=== PATIENT | female | born 1990 | race Hispanic/Latino ===

== ENCOUNTER 2019-02-27 10:20 | Inpatient (IN) | payer OTHER ==
--- OUTSIDE RECORDS SUMMARY | 2019-02-27 10:22 | XMS REPORT ---
:1990 [facility] Address [address] [place] [address] [address]. [address] [place] [address] Care Team Providers Name Role Phone Unavailable Unavailable Unavailable Problems This patient has no known problems. Allergies, Adverse Reactions, Alerts This patient has no known allergies or adverse reactions. Medications This patient has no known medications.
[2019-02-27] MEDS ORDERED: Ringers Lactate 1,000 ML IV PRN (12:18)
[2019-02-27 12:46] LABS: Urine Appearance CLEAR; Urine Bilirubin NEGATIVE (NEG); Urine Blood NEGATIVE (NEG); Urine Color YELLOW; Urine Glucose NEGATIVE (NEG); Urine Protein NEGATIVE (NEG); Urine Urobilinogen 0.2 mg/dL (0.2-1.0)
[2019-02-27 12:52] LABS: Urine Microscopic Reflex ORDER UMIC
[2019-02-27 12:58] LABS: Basophils % 0.2 % (0-1.3); Hematocrit 35.1 % (36.0-45.0); MPV 9.7 fL (7.6-11.3); RBC Red Blood Cell Count 3.75 M/uL (3.86-4.86)
[2019-02-27] MEDS ORDERED: Ringers Lactate 1,000 ML IV SCH (13:00)
[2019-02-27 13:06] LABS: Urine Bacteria 20-50 /HPF (<20); Urine Culture Reflex Order REFLEXED; Urine RBC <5 /HPF (NONE SEEN)
[2019-02-27] MEDS ORDERED: OXYTOCIN/LR 20 UNIT/1,000 ML BAG IV ONE (14:18)
[2019-02-27 14:41] LABS: RPR (Rapid Plasma Reagin) NON-REACT (NON-REACT)
[2019-02-27] MEDS ORDERED: ROPIVACAINE HCL 100 ML IV PRN (14:51)
[2019-02-27] MEDS ORDERED: ROPIVACAINE HCL 0.2% 20ML AMP IV ONE (14:52)
--- NOTE | 2019-02-27 14:52 | P.OBGYNHP ---
Certification for Inpatient Patient admitted to: Inpatient With expected LOS: <2 Midnights Patient will require the following post-hospital care: None Practitioner: I am a practitioner with admitting privileges, knowledge of patient current condition, hospital course, and medical plan of care. Services: Services provided to patient in accordance with Admission requirements found in Title 42 Section 412.3 of the Code of Federal Regulations Patient History Date of Service: 02/27/19 Reason for admission: LABOR History of Present Illness: Patient is a 28-year-old 3 para 1011 at 38 weeks and 3 days gestation who presented to Labor and delivery in active labor. She has been fabiana all night. When she presented to Labor and delivery she was found to be 3 cm dilated in the office 2 days ago she was 1 cm. She denies vaginal bleeding no leakage of fluid. She reports good movements. Patient has obtained care with for beginning at 10 weeks gestation. She has been compliant with all visits. Her care is been complicated with history of 1 prior section and patient desires to . Patient also had some left lower extremity varicosities that were bothering her throughout the performed and was found to be negative. See records for further details. Allergies No Known Allergies Allergy (Verified 03/21/16 15:28) Home Medications: Vitamin [ VITAMIN*] 1 tab PO DAILY 05/01/16 - Past Medical/Surgical History Diabetic: No -: H/o spontaneous x1 -: C/s 2016 -: C/s 2015 - Family History Family History: Reviewed- Non-Contributory - Social History Smoking Status: Never smoker Alcohol use: No CD- Drugs: No Caffeine use: No Review of Systems 10-point ROS is otherwise unremarkable Physical Examination - Vital Signs Temperature: 99.3 F Blood Pressure: 111/69 Pulse: 65 Respirations: 18 - General General: Alert, Oriented x3, Mild distress HEENT: Atraumatic Neck: Supple Respiratory: Normal air movement Cardiovascular: No edema, Normal pulses Capillary refill: <2 Seconds Breasts: Normal configuration Gastrointestinal: Other (gravid) Musculoskeletal: No clubbing, No swelling Integumentary: No rashes, No breakdown Neurological: Normal gait, Normal speech Laboratory Data (last 24 hrs) 02/27/19 12:05: WBC 9.0, Hgb 12.1, Hct 35.1 L, Plt Count 191 Assessment and Plan - Plan Patient is a 28-year-old 3 para 1011 at 38 weeks and 3 days gestation who presents in labor with a history of 1 prior section who desires a trial of labor. Patient will be admitted for labor augmentation. Rupture of membranes will be performed and Pitocin will be given. Epidural placement at patient's request. Continuous maternal monitoring be performed. Anticipate vaginal however patient is aware of risk of repeat section. Discharge Plan: Home Plan to discharge in: 48 Hours - Advance Directives Does patient have a Living Will: No Does patient have a Durable POA for Healthcare: No
[2019-02-27] MEDS ORDERED: FENTANYL CITR 100 MCG/2 ML IV ONE (14:53)
[2019-02-27] MEDS ORDERED: OXYTOCIN/LR 20 UNIT/1,000 ML BAG IV SCH (15:00)
[2019-02-27 16:58] VITALS: BMI 24.6
[2019-02-27] MEDS ORDERED: AMPICILLIN SODIUM 2 GM/VIAL VIAL ONE (22:48)
[2019-02-27] MEDS ORDERED: NA CHLORIDE 0.9% 100 ML IV ONE (22:52)
[2019-02-27] MEDS ORDERED: ONDANSETRON 4 MG/2 ML VIAL ONE (22:53)
[2019-02-27] MEDS ORDERED: ONDANSETRON 4 MG/2 ML VIAL IV ONE (22:56)
[2019-02-27] MEDS ORDERED: DOCUSATE NA/SENNA CONC 1 TAB PO PRN (23:13)
[2019-02-27] MEDS ORDERED: BISACODYL 10 MG RECTAL SUPP RECT PRN (23:13)
[2019-02-27] MEDS ORDERED: METHYLERGONOVINE 0.2 MG TAB PO PRN (23:13)
[2019-02-27] MEDS ORDERED: ACETAMINOPHEN 500 MG TAB PO PRN (23:13)
[2019-02-27] MEDS ORDERED: SILVER NITRATE 1 APPL TOP ONE (23:15)
[2019-02-27] MEDS ORDERED: KETOROLAC 30 MG/ML INJ IV PRN (23:15)
[2019-02-27] MEDS ORDERED: ONDANSETRON 4 MG (ODT) TAB PO PRN (23:15)
--- NOTE | 2019-02-27 23:26 | P.OP ---
Date of Service: 02/27/19 Findings and Operative Technique Patient delivered a viable female in cephalic presentation on February 27, 2019 at 10:27 p.m.. was delivered over a midline episiotomy. Infant was in left occiput anterior position the infant was delivered the nose and mouth were suctioned with a suction bulb. The cord was clamped and cut and infant was placed on mother's abdomen for skin to skin bonding. Attention was then turned to the umbilical cord where cord blood was obtained and passed off to the nurse. Attention was then turned to the placenta which was delivered with gentle traction. Placenta was noted to be intact was delivered at 10:30 p.m.. Attention was then turned to the episiotomy which was noted to be in the midline a second-degree a were also extensive amount of lacerations noted in the right vaginal sidewall I rapidly repaired the sidewall laceration attention was then turned to the episiotomy which was repaired with a 2 0 Vicryl in the usual fashion. Once hemostasis was noted the nurse was notified to place an ice pack on the perineum since there was still some mild bleeding occurring from the suture sites. No further suture ligation was performed due to a causing further bleeding every time the suture was placed through the tissue. Patient will be monitored for signs of bleeding. Estimated blood loss was 300 cc. Apgars were 9 and 9. Weight was found to be 7 lb. 1st stage of labor was 10 hr and 10 min. 2nd stage was 12 min. This was a successful . Both mom and baby are doing well. Mom is going to breast-feed.
[2019-02-28] MEDS: IBUPROFEN 200 MG TAB PO PRN ×2 (00:20→16:09)
[2019-02-28] MEDS: Oxycodone HCl/Acetaminophen 1 TAB TAB PO PRN ×2 (05:08→11:10)
[2019-02-28 06:37] LABS: Absolute Lymphocytes (CBC) 1.6 K/uL (0.7-4.9); Basophils % 0.1 % (0-1.3); Hematocrit 26.6 % (36.0-45.0); Lymphocytes % 9.2 % (15.3-44.8); MPV 8.7 fL (7.6-11.3); RBC Red Blood Cell Count 2.86 M/uL (3.86-4.86)
[2019-02-28] MEDS: CEPHALEXIN 500 MG CAP PO SCH (18:48)
[2019-03-01] MEDS: CEPHALEXIN 500 MG CAP PO SCH (01:05)
[2019-03-01 02:10] VITALS: BP 106/84; TEMP 98.4
[2019-03-02 04:43] LABS: HBsAG Nonreactive (Nonreactive)
== END 2019-03-01 01:20 | disposition home or self-care (01) | DRG 807 ==
LOC: L&D 10:20 → 2ND-WC 11:42
PROVIDERS: ADMIT Student in an Organized Health Care Education/Training Program; ATTEND Student in an Organized Health Care Education/Training Program
PROC: 10E0XZZ Delivery of Products of Conception, External Approach (ICD-10-PCS; principal; 2019-02-27)
PROC: 0KQM0ZZ Repair Perineum Muscle, Open Approach (ICD-10-PCS; 2019-02-27)
PROC: 0W8NXZZ Division of Female Perineum, External Approach (ICD-10-PCS; 2019-02-27)
DX: O71.4 Obstetric high vaginal laceration alone (principal); Z37.0 Single live birth; O34.211 Maternal care for low transverse scar from previous cesarean delivery; Z3A.38 38 weeks gestation of pregnancy
CPT/HCPCS: 36415; 81003; 81015; 85014; 85025; 86592; 86901; 87086; 87088; 87340; J0290; J2405; J2590; J2795; J3010